=== PATIENT | male | born 1995 | race Caucasian/White ===

== ENCOUNTER 2018-06-22 03:58 | Emergency (ER) | payer BC, OTHER ==
[2018-06-22] MEDS ORDERED: predniSONE 20 MG TAB ONE (05:17)
== END 2018-06-22 06:05 | disposition home or self-care (01) ==
LOC: ERS 03:58
DX: J45.901 Unspecified asthma with (acute) exacerbation (principal); Z79.899 Other long term (current) drug therapy; Z79.51 Long term (current) use of inhaled steroids
CPT/HCPCS: 94640; J7620